=== PATIENT | male | born 1995 | race American Indian/Alaskan Native ===

== ENCOUNTER 2016-11-04 00:15 | Emergency (ER) | payer SELFPAY ==
[2016-11-04 01:29] LABS: Anion Gap 18 mmol/L; BUN/Creatinine Ratio 12.22; Blood Urea Nitrogen 11 mg/dL (9-20); Calcium 9.3 mg/dL (8.4-10.2); Carbon Dioxide 26 mmol/L (22-30); Chloride 100.6 mmol/L (98-107); Glucose 98 mg/dL (75-100); Sodium 141 mmol/L (137-145)
[2016-11-04 01:34] LABS: Basophils % (Auto) 0.5 % (0.0-1.8); Eosinophils % (Auto) 2.8 % (0.0-4.3); Hematocrit 47.5 % (35.5-45.6); Hemoglobin 16.4 gm/dl (11.8-15.2); Mean Corpuscular HGB Conc 35 % (32-34); Mean Corpuscular Hemoglobin 32 pg (28-32); Mean Corpuscular Volume 91 fl (84-94); Platelet Count 246 K/mm3 (140-440); Red Blood Count 5.21 M/mm3 (3.65-5.03); Red Cell Distribution Width 11.5 % (13.2-15.2); White Blood Count 7.3 K/mm3 (4.5-11.0)
[2016-11-04 03:16] VITALS: BP 122/80
--- NOTE | 2016-11-04 09:41 | XRay Report ---
ROUTINE CHEST, TWO VIEWS: HISTORY: chest pain. The trachea, heart, mediastinal contour, lung lei and bony thorax are unremarkable. IMPRESSION: Unremarkable chest x-ray.
== END 2016-11-04 03:15 | disposition left against medical advice (07) ==
LOC: ED 00:15
DX: R07.9 Chest pain, unspecified (principal); Z53.21 Procedure and treatment not carried out due to patient leaving prior to being seen by health care provider
CPT/HCPCS: 36415; 71020; 80048; 84484; 85025; 93005; 93010